=== PATIENT | male | born 1995 | race Hispanic/Latino ===

== ENCOUNTER 2024-01-30 07:59 | Emergency (ER) | payer SELFPAY ==
[~2024-01-30] VITALS: Ht 172.7 cm; Wt 97.5 kg
[2024-01-30] MEDS: morPHINE 4 MG SYG IVP ONE (08:33)
[2024-01-30 08:35] LABS: MEAN CORPUSCULAR HEMOGLOBIN 30.3 pg (27.0-33.0); MEAN CORPUSCULAR HGB CONC 34.9 g/dL (32.0-36.0); MEAN CORPUSCULAR VOLUME 86.7 fL (79-99); RED BLOOD CELL COUNT(AUTO) 5.19 MIL/uL (4.50-6.20); RED CELL DISTRIBUTION WIDTH 12.2 % (11.0-15.5); WHITE BLOOD COUNT (AUTO) 11.9 K/uL (4.8-10.8)
[2024-01-30 08:36] LABS: APPEARANCE,URINE TURBID (CLEAR); BILIRUBIN,URINE NEGATIVE (NEGATIVE); COLOR,URINE RED (YELLOW); GLUCOSE, URINE (UA) NEGATIVE (NEGATIVE); KETONES,URINE 5 mg/dL (NEGATIVE); LEUKOCYTE ESTERASE ,URINE TRACE Leu/uL (NEGATIVE); NITRATE,URINE POSITIVE (NEGATIVE); OCCULT BLOOD,URINE LARGE (NEGATIVE); PH,URINE 7.5 (5.0-8.0); PROTEIN,URINE 100 mg/dL (NEGATIVE)
[2024-01-30 08:46] LABS: CREATININE 0.9 mg/dL (0.5-1.3); POTASSIUM 3.7 mmol/L (3.5-5.1)
[2024-01-30 08:47] LABS: ADD UA MICROSCOPIC YES
[2024-01-30 09:06] LABS: BACTERIA,URINE Few /HPF (None Seen); RBC,URINE TNTC /HPF (0-1)
[2024-01-30] MEDS: tamSULOsin HCL 0.4 MG CAP.ER.24H PO ONE (09:20)
[2024-01-30] MEDS: ketOROlac 30MG VIAL (30MG/ML) IVP ONE (09:21)
[2024-01-30] MEDS: tamSULOsin HCL 0.4 MG CAP.ER.24H ONE (09:21)
[2024-01-30] MEDS: 0.9%NACL 1000ML 1,000 ML IV ONE ×2 (09:21→09:22)
[2024-01-30] MEDS: ketOROlac 30MG VIAL (30MG/ML) ONE (09:22)
[2024-01-30] MEDS ORDERED: TAMS-1 PO (11:18)
[2024-01-30] MEDS ORDERED: ACET-2079 PO (11:18)
[2024-01-30] MEDS ORDERED: ONDA-243 PO (11:18)
[2024-01-30] MEDS ORDERED: IBUP-2077 PO (11:18)
[2024-01-30 11:49] VITALS: BP 109/64; PULSE 72; RESP 16; TEMP 98; O2SAT 99
== END 2024-01-30 11:50 | disposition home or self-care (01) ==
LOC: EDH 07:59
DX: N13.2 Hydronephrosis with renal and ureteral calculous obstruction (principal); Z87.442 Personal history of urinary calculi; Z98.890 Other specified postprocedural states
CPT/HCPCS: 99285; 74176; 96374; 96361; 96375; 80048; 85027; 87086; 81001; 36415; J7030; J2270; J1885